=== PATIENT | male | born 1970 | race Caucasian/White ===

== ENCOUNTER 2016-08-23 15:43 | Emergency (ER) | payer SELFPAY ==
[~2016-08-23] VITALS: Ht 193 cm; Wt 88.0 kg
[2016-08-23 15:44] VITALS: BP 152/92; PULSE 51; RESP 16; TEMP 97.8; O2SAT 99
--- NOTE | 2016-08-23 16:29 | PD ---
HPI Chief Complaint: Injury Time Seen by Provider: 16:29 Travel History International Travel<30 days: No Contact w/Intl Traveler<30days: No Traveled to known affect area: No History of Present Illness HPI 46-year-old male presents to the emergency department for evaluation of left second finger injury that occurred around 12:30 this afternoon. Patient states that he cut his finger using a table saw. This his tetanus immunization was 4 months ago. He is right-handed. He was seen in urgent care and x-rays were completed which showed fracture of the distal aspect of the finger. Patient denies any loss of range of motion. He denies any loss of sensation. He has no chronic medical problems and takes no prescribed medications. He has no other medical complaints at this time. No other injury. PFSH Past Medical History Cancer: Yes (skin cancer) Tetanus Vaccination: < 5 Years Past Surgical History Other Surgery: Yes (melanoma removed r leg) Social History Alcohol Use: No Tobacco Use: No Substance Use: No Allergies-Medications (Allergen,Severity, Reaction): Coded Allergies: No Known Allergies (Unverified , 08/23/16) Reported Meds & Prescriptions Reported Meds & Active Scripts Active Lortab (Hydrocodone-Acetaminophen) 5-325 Mg Tab 1 Tab PO Q4H PRN Review of Systems Except as stated in HPI: all other systems reviewed are Neg Physical Exam Narrative GENERAL: Well-nourished, well-developed male patient, ambulatory. Afebrile. SKIN: Focused skin assessment warm/dry. The laceration to the left second finger that extends from the dorsal aspect of the finger at approximately the DIP joint vertically through the nail to the top one quarter of the volar aspect. HEAD: Normocephalic. Atraumatic. EYES: No scleral icterus. No injection or drainage. NECK: Supple, trachea midline. No JVD or lymphadenopathy. CARDIOVASCULAR: Regular rate and rhythm without murmurs, gallops, or rubs. RESPIRATORY: Breath sounds equal bilaterally. No accessory muscle use. Lung sounds are clear to auscultation throughout. GASTROINTESTINAL: Abdomen soft, non-tender, nondistended. MUSCULOSKELETAL: No cyanosis, or edema. Patient has full ROM of the affected digit. He has intact two point discrimination to the distal aspect of the affected finger. BACK: Nontender without obvious deformity. No CVA tenderness. Data Data Last Documented VS Vital Signs Date Time Temp Pulse Resp B/P Pulse Ox O2 Delivery O2 Flow Rate FiO2 08/23/16 16:03 55 18 08/23/16 15:44 97.8 152/92 99 Orders Bupivacaine Pf 0.5% Inj (Marcaine Pf 0.5 (08/23/16 16:45) Lidocaine 1% Inj (50 Ml) (Xylocaine 1% I (08/23/16 16:45) Cefazolin Inj (Ancef Inj) (08/23/16 17:15) Splint Or Brace Apply/Monitor (08/23/16 18:20) Mandatory Outpatient Referral (08/23/16 18:20) [facility] Medical Decision Making Medical Screen Exam Complete: Yes Emergency Medical Condition: Yes Medical Record Reviewed: Yes Differential Diagnosis Laceration versus open fracture versus partial amputation Narrative Course 46-year-old male presents to the emergency department for evaluation of a left second finger laceration that occurred this afternoon with a table saw. He was first seen in urgent care and x-rays are completed. X-rays do show distal tuft fracture. Hand surgeon migration agent is paged. I spoke with Dr. Mills and he would like the laceration repaired in the emergency department. The patient requests antibiotics and follow-up in the office. He would like the nail to be removed. He understands that I will be unable to replace the nail due to nail being in multiple pieces. He would like the nailbed to be repaired with 4-0 or 5-0 chromic gut. The patient is given Ancef 1 g IM. He will be discharged with a prescription for Keflex. He is instructed to follow up with Dr. Mills. He verbalizes agreement and states that he will. Mandatory referral is placed. Patient states the finger splint. He is given proper wound care instructions. The patient was discharged in stable condition with instructions, including return instructions and follow up instructions. Procedures Procedure Narrative LACERATION LOCATION: Left second finger LENGTH: 4 cm NUMBER OF STITCHES/JOSE ELIAS: 10 simple interrupted Prolene 4-0, 5 simple interrupted chromic gut 4-0 REPAIR: The area of the laceration was prepped with Betadine and sterilely draped. A digital block was performed with 1% lidocaine and 0.5% Marcaine. The wound was copiously irrigated and explored without evidence of foreign body, tendon injury or neurovascular injury. The wound was closed using 4-0 Prolene and 4-0 chromic gut. This was a single layer repair. A sterile dressing was applied. The patient was advised to keep the dressing clean and dry. Patient tolerated the procedure well. Diagnosis Primary Impression: Open fracture of finger, distal phalanx Qualified Code: S62.631B - Open displaced fracture of distal phalanx of left index finger, initial encounter Referrals: Fletcher Mills III, MD call for appointment Patient Instructions: Care For Your Stitches (ED), Finger Fracture (ED), Finger Laceration (ED), General Instructions Additional Instructions: Clean twice daily with soap and water and apply [id number] antibiotic ointment. Keep clean and dry. Wear finger splint. Take Lortab as started as needed for pain. Caution this can make you drowsy so do not drive after taking. Take antibiotic as directed until gone. This is $4 at [facility]. Follow-up with Dr. Mills, hand surgeon. Mandatory referral was placed. Return to the emergency department for any acute worsening of symptoms. Med/Other Pt SpecificInfo: Prescription(s) given Scripts Cephalexin (Keflex)500 Mg [id number] Mg PO Q6H 10 Days Ref 0 Prov:Jackie Dunn 08/23/16 Hydrocodone-Acetaminophen (Lortab)5-325 Mg Tab1 Tab PO Q4H PRN (PAIN) #14 TAB Ref 0 Prov:Kana James MD 08/23/16 Disposition: 01 DISCHARGE HOME Condition: Stable Jackie Dunn Aug 23, 2016 16:29
[2016-08-23] MEDS ORDERED: BUPIVACAINE HCL PF 0.5% 10 ML VIAL INFIL ONE (16:45)
[2016-08-23] MEDS ORDERED: LIDOCAINE HCL 1% 50 ML VIAL INFIL ONE (16:45)
[2016-08-23] MEDS ORDERED: ceFAZolin INJ 1,000 MG VIAL IM ONE (17:15)
[2016-08-23] MEDS ORDERED: HYDR-3533 PO (18:22)
[2016-08-23] MEDS ORDERED: CEPH-460 PO (18:23)
[2016-08-23 19:10] VITALS: BP 142/87
== END 2016-08-23 19:11 | disposition home or self-care (01) ==
LOC: NEPE 15:43
DX: S62.631B Displaced fracture of distal phalanx of left index finger, initial encounter for open fracture (principal); W31.2XXA Contact with powered woodworking and forming machines, initial encounter
CPT/HCPCS: 12002; 96372; 99284; J0690